=== PATIENT | male | born 1960 | race Caucasian/White ===

== ENCOUNTER 2016-09-30 08:04 | Inpatient (IN) | payer OTHER ==
[2016-09-30] VITALS (7 sets, daily range): BP systolic 113–149; BP diastolic 71–88; PULSE 18–84; RESP 16–19; TEMP 97.6–98.5; O2SAT 96–100
[~2016-09-30] VITALS: Ht 182.9 cm; Wt 77.4 kg
[2016-09-30] MEDS ORDERED: SODIUM CHLOR 0.9% 1000 ML INJ 1,000 ML IV SCH (08:49)
[2016-09-30] MEDS ORDERED: SODIUM CHLORIDE 0.9% FLUSH 10 ML FLUSH IV FLUSH PRN ×2 (09:00→11:15)
[2016-09-30] MEDS ORDERED: MORPHINE SULFATE 4 MG/ML INJ IV PUSH ONE (09:00)
[2016-09-30] MEDS ORDERED: ONDANSETRON HCL 4 MG/2 ML VIAL IVP ONE (09:00)
[2016-09-30 09:12] LABS: AUTOMATED NEUTROPHIL # 9.5 TH/MM3 (1.8-7.7); BASOPHIL # 0.1 TH/MM3 (0-0.2); BASOPHIL % 0.6 % (0.0-2.0); EOSINOPHIL % 0.4 % (0.0-4.0); HEMATOCRIT 42.5 % (39.0-51.0); LYMPH % 13.5 % (9.0-44.0); LYMPHOCYTE # 1.6 TH/MM3 (1.0-4.8); MEAN CELL VOLUME 87.6 FL (80.0-100.0); MEAN CORPUSCULAR HEMOGLOBIN 28.6 PG (27.0-34.0); MEAN CORPUSCULAR HGB CONC 32.6 % (32.0-36.0); MONO % 4.1 % (0.0-8.0); NEUT % 81.4 % (16.0-70.0); PLATELET COUNT 311 TH/MM3 (150-450); RED BLOOD COUNT 4.86 MIL/MM3 (4.50-5.90); RED CELL DISTRIBUTION WIDTH 13.2 % (11.6-17.2); WHITE BLOOD COUNT 11.7 TH/MM3 (4.0-11.0)
--- NOTE | 2016-09-30 09:13 | PD ---
HPI Chief Complaint: Abdominal Pain Time Seen by Provider: 08:46 Travel History International Travel<30 days: No Contact w/Intl Traveler<30days: No Traveled to known affect area: No History of Present Illness HPI 56-year-old male presents with central abdominal pain that is been present since yesterday. He states he had a normal bowel movement yesterday but today it was a little bit more slimy. He denies any nausea or vomiting or other concurrent complaints. He denies prior history of this. He states that he had to leave work early yesterday secondary to the pain. Quality pain is sharp. Severity is progressive. He denies specific migration of the pain. Pain is worse with movement. He denies other specific modifying factors. PFSH Past Medical History Medical History: Denies Significant Hx Hx Anticoagulant Therapy: No Diabetes: No Diminished Hearing: No Tetanus Vaccination: Unknown Past Surgical History Surgical History: No Previous Surgery Social History Alcohol Use: No Tobacco Use: Yes (RARE CIGAR) Substance Use: No Allergies-Medications (Allergen,Severity, Reaction): Coded Allergies: No Known Allergies (Unverified , 09/30/16) Reported Meds & Prescriptions Reported Meds & Active Scripts Active No Active Prescriptions or Reported Medications Review of Systems Except as stated in HPI: all other systems reviewed are Neg Physical Exam Narrative GENERAL: Well-nourished, well-developed patient. Uncomfortable SKIN: Warm and dry. HEAD: Normocephalic and atraumatic. EYES: No injection or drainage. ENT: No nasal drainage noted. NECK: Supple, trachea midline. CARDIOVASCULAR: Regular rate and rhythm RESPIRATORY: No increased effort. No accessory muscle use. GASTROINTESTINAL: Abdomen soft, tender to palpation in periumbilical area with what appears to be umbilical hernia but pulls away hand when attempting to reduce, nondistended. EXTREMITIES: No edema. NEUROLOGICAL: Awake and alert. Motor and sensory grossly within normal limits. Normal speech. Data Data Last Documented VS Vital Signs Date Time Temp Pulse Resp B/P Pulse Ox O2 Delivery O2 Flow Rate FiO2 09/30/16 09:15 64 18 113/74 100 Room Air 09/30/16 08:22 97.6 Orders Complete Blood Count With Diff (09/30/16 08:49) Comprehensive Metabolic Panel (09/30/16 08:49) Lipase (09/30/16 08:49) Urinalysis - C+S If Indicated (09/30/16 08:49) Ct Abd/Pel W Iv Contrast(Rout) (09/30/16 08:49) Iv Access Insert/Monitor (09/30/16 08:49) Ecg Monitoring (09/30/16 08:49) Oximetry (09/30/16 08:49) Morphine Inj (Morphine Inj) (09/30/16 09:00) Ondansetron Inj (Zofran Inj) (09/30/16 09:00) Sodium Chlor 0.9% 1000 Ml Inj (Ns 1000 M (09/30/16 08:49) Sodium Chloride 0.9% Flush (Ns Flush) (09/30/16 09:00) Iohexol 350 Inj (Omnipaque 350 Inj) (09/30/16 10:16) Piperacil-Tazo 3.375 Gm Premix (Zosyn 3. (09/30/16 11:00) Consult General Surgery (09/30/16 ) Admit Order (Ed Use Only) (09/30/16 10:59) Labs Laboratory Tests Test 09/30/16 09:00 White Blood Count 11.7 TH/MM3 Red Blood Count 4.86 MIL/MM3 Hemoglobin 13.9 GM/DL Hematocrit 42.5 % Mean Corpuscular Volume 87.6 FL Mean Corpuscular Hemoglobin 28.6 PG Mean Corpuscular Hemoglobin 32.6 % Concent Red Cell Distribution Width 13.2 % Platelet Count 311 TH/MM3 Mean Platelet Volume 7.3 FL Neutrophils (%) (Auto) 81.4 % Lymphocytes (%) (Auto) 13.5 % Monocytes (%) (Auto) 4.1 % Eosinophils (%) (Auto) 0.4 % Basophils (%) (Auto) 0.6 % Neutrophils # (Auto) 9.5 TH/MM3 Lymphocytes # (Auto) 1.6 TH/MM3 Monocytes # (Auto) 0.5 TH/MM3 Eosinophils # (Auto) 0.0 TH/MM3 Basophils # (Auto) 0.1 TH/MM3 CBC Comment DIFF FINAL Differential Comment Sodium Level 142 MEQ/L Potassium Level 3.8 MEQ/L Chloride Level 105 MEQ/L Carbon Dioxide Level 29.2 MEQ/L Anion Gap 8 MEQ/L Blood Urea Nitrogen 8 MG/DL Creatinine 0.91 MG/DL Estimat Glomerular Filtration 86 ML/MIN Rate Random Glucose 112 MG/DL Calcium Level 9.0 MG/DL Total Bilirubin 1.1 MG/DL Aspartate Amino Transf 10 U/L (AST/SGOT) Alanine Aminotransferase 20 U/L (ALT/SGPT) Alkaline Phosphatase 59 U/L Total Protein 7.4 GM/DL Albumin 3.6 GM/DL Lipase 127 U/L MDM Medical Decision Making Medical Screen Exam Complete: Yes Emergency Medical Condition: Yes Medical Record Reviewed: Yes (past history confirmed) Interpretation(s) CBC & BMP Diagram 09/30/16 09:00 CT scan abdomen pelvis shows inflammation of ileum and sigmoid colon with microperforation without abscess, small midline ventral hernia, fatty liver, renal cyst, degenerative spiny changes Differential Diagnosis Umbilical hernia, gastritis, appendicitis, pancreatitis, stone Narrative Course Will check blood work, urinalysis, CT scan and dose with Zofran and morphine and reevaluate ED workup with microperforation diverticulitis. Will dose with Zosyn and admit to the hospital. Patient updated and agrees to plan Physician Communication Physician Communication dr small states to admit to medicine with antibiotics, will follow dr fuentes agrees to admit Diagnosis Primary Impression: Diverticulitis Qualified Code: K57.80 - Diverticulitis of intestine with perforation without bleeding, unspecified part of intestinal tract Admitting Information Admitting Physician Requests: Admit Scripts No Active Prescriptions or Reported Meds Mami Rodgers MD Sep 30, 2016 09:13
[2016-09-30 09:15] LABS: HEMO FLAGS DIFF FINAL
[2016-09-30 09:53] LABS: BICARBONATE 29.2 MEQ/L (21.0-32.0); BLOOD UREA NITROGEN 8 MG/DL (7-18)
[2016-09-30 09:56] LABS: ALT (GPT) 20 U/L (12-78); AST (GOT) 10 U/L (15-37); GLOMERULAR FILTRATION RATE 86 ML/MIN (>89)
[2016-09-30 09:57] LABS: TOTAL BILIRUBIN ADULT 1.1 MG/DL (0.2-1.0)
[2016-09-30 09:58] LABS: ALKALINE PHOSPHATASE 59 U/L (45-117); ANION GAP 8 MEQ/L (5-15); CHLORIDE 105 MEQ/L (98-107); POTASSIUM 3.8 MEQ/L (3.5-5.1); SODIUM (NA) 142 MEQ/L (136-145)
[2016-09-30] MEDS ORDERED: IOHEXOL 350 MG/ML 10 ML VIAL (for RAD DIAG) IV ONE (10:16)
--- NOTE | 2016-09-30 10:48 | RADHPO ---
EXAM DATE/TIME: 09/30/2016 10:02 [facility] COMPARISON: No previous studies available for comparison. INDICATIONS : Mid abdominal pain for one day. IV CONTRAST: 95 cc Omnipaque 350 (iohexol) IV ORAL CONTRAST: No oral contrast ingested. RADIATION DOSE: 10.34 CTDIvol (mGy) MEDICAL HISTORY : None SURGICAL HISTORY : None. ENCOUNTER: Initial ACUITY: 1 day PAIN SCALE: 2/10 LOCATION: Abdomen TECHNIQUE: Volumetric scanning of the abdomen and pelvis was performed. Using automated exposure control and ad justment of the mA and/or kV according to patient size, radiation dose was kept as low as reasonably achievable to obtain optimal diagnostic quality images. FINDINGS: There is evidence of extensive inflammatory changes surrounding a loop of thickened ileum as well as pericolic inflammatory changes within the region of the mid sigmoid colon. The findings raise the possibility o f either acute diverticulitis with associated enteritis or possibly inflammatory bowel disease involving the d istal ileum with adjacent pericolic inflammatory changes in the region of the sigmoid. There are tiny extra gen nal collections of air in the region of the inflammatory changes within the right lower quadrant suggesti ng microperforation. No abscess formation is noted. The appendix is normal. The liver is mildly enlarged and demonstrates fatty infiltration. No focal hepatic mass is noted. N o biliary ductal dilatation is noted. The gallbladder is distended but demonstrates no wall thickening or pericholecy stic fluid. The spleen is normal. The pancreas is normal. The adrenal glands are normal bilaterally. The kidneys e nhance briskly and demonstrate no solid mass or hydronephrosis. There is evidence of multiple cysts within the left kidney. The largest cyst measures 13 mm and is located within the upper pole. The abdominal aorta i s calcified but is not aneurysmally dilated. The inferior vena cava is normal. There is no paraaortic, retroper itoneal or mesenteric lymphadenopathy. Ventral abdominal wall hernia is noted in the region of the umbilicus an d contains only fat. No bowel obstruction is noted. The prostate gland is mildly prominent and contains some c entral calcifications. The urinary bladder is unremarkable. Degenerative changes are noted throughout the lumbar and lower thoracic spine. The visualized lung bases are clear. CONCLUSION: 1. Inflammatory changes surrounding a loop of thickened ileum as well as the mid sigmoid colon rita mike the possibility of acute diverticulitis with associated enteritis or possibly inflammatory bowel di sease with adjacent inflammatory changes in the region of the mid sigmoid colon. Clinical correlatio n is recommended. Tiny extra luminal collections of air are noted in this location suggesting microp erforation but no abscess collection is noted. 2. No CT evidence of acute appendicitis 3. Small midline ventral abdominal wall hernia containing only fat. 4. Mildly enlarged fatty liver. 5. Degenerative changes throughout the lumbar and lower thoracic spine. 6. Multiple left renal cysts. Jesus Jim MD on September 30, 2016 at 10:18 Board Certified Radiologist. This report was verified electronically.
[2016-09-30 10:49] LABS: BLOOD, URINE NEG (NEG); GLUCOSE,URINE NEG (NEG); KETONE, URINE NEG (NEG); NITRITE,URINE NEG (NEG); PH, URINE 6.5 (5.0-8.5)
[2016-09-30] MEDS ORDERED: PIPERACIL-TAZO 3.375 GM PREMIX 50 ML IV ONE (11:00)
[2016-09-30] MEDS ORDERED: MAGNESIUM HYDROXIDE SUSP 30 ML CUP PO PRN (11:15)
[2016-09-30] MEDS ORDERED: NALOXONE HCL 0.4 MG/ML AMP IV PRN (11:15)
[2016-09-30] MEDS ORDERED: BISACODYL 10 MG SUPP RECTAL PRN (11:15)
[2016-09-30] MEDS ORDERED: LACTULOSE SYRUP 20 GM/30 ML CUP PO PRN (11:15)
[2016-09-30] MEDS ORDERED: SENNOSIDES 8.6 MG TAB PO PRN (11:15)
[2016-09-30] MEDS ORDERED: ONDANSETRON HCL 4 MG/2 ML VIAL IV PUSH ONE (11:15)
[2016-09-30] MEDS ORDERED: ONDANSETRON HCL 4 MG/2 ML VIAL IVP PRN (11:15)
[2016-09-30 11:21] LABS: METHOD OF COLLECTION CLEAN CATCH
[2016-09-30 11:22] LABS: COMMENT (UR) CULT NOT INDICATED; CULTURE IF INDICATED CULT NOT INDICATED; RBC, URINE 0-3 /hpf (0-3); SQUAMOUS EPITHELIAL CELL URINE 0-5 /hpf (0-5); URINE COLOR YELLOW (YELLW/STRAW)
[2016-09-30] MEDS: SODIUM CHLOR 0.9% 1000 ML INJ 1,000 ML IV SCH ×2 (11:49→22:11)
[2016-09-30] MEDS ORDERED: HEPARIN SODIUM - SQ 10,000 UNITS/ML VIAL SQ SCH (12:00)
--- NOTE | 2016-09-30 15:27 | HHI.HP ---
[facility] Physician Babs Ortiz MD Admission Diagnosis diverticultiis Diagnoses: Travel History International Travel<30 Days: No Contact w/Intl Traveler <30 Da: No Traveled to Known Affected Are: No History of Present Illness 56-year-old male with no significant past medical history, who presents with one -day history of constant, sharp nonradiating central abdominal pain, accompanied by generalized fatigue. Patient does report slimy bowel movements which have become more so over the past 7 months. Denies any nausea or vomiting. Denies any chest pain or shortness of breath. Review of Systems Performed and negative except for history of present illness and past medical history. Past Family Social History Past Medical History Patient denies any significant past medical history Past Surgical History No past surgical history Reported Medications Patient denies any medications. Allergies: Coded Allergies: No Known Allergies (Unverified , 09/30/16) Family History Mother is 77 Father from heart attack in his 50s. Social History Patient reports rare cigar use Denies alcohol use Denies any illicit drug use. Physical Exam Vital Signs Vital Signs Date Time Temp Pulse Resp B/P Pulse Ox O2 Delivery O2 Flow Rate FiO2 09/30/16 13:37 67 18 139/86 97 Room Air 09/30/16 11:29 84 17 116/71 97 Room Air 09/30/16 09:15 64 18 113/74 100 Room Air 09/30/16 08:55 99 Room Air 09/30/16 08:22 97.6 68 16 141/88 99 Physical Exam GENERAL: This is a well-nourished, well-developed patient, appears in pain. Alert and oriented 3. SKIN: No rashes, ecchymoses or lesions. Cool and dry. HEAD: Atraumatic. Normocephalic. No temporal or scalp tenderness. EYES: Pupils equal round and reactive. Extraocular motions intact. No scleral icterus. No injection or drainage. ENT: Nose without bleeding, purulent drainage or septal hematoma. Throat without erythema, tonsillar hypertrophy or exudate. Uvula midline. Airway patent. NECK: Trachea midline. No JVD or lymphadenopathy. Supple, nontender, no meningeal signs. CARDIOVASCULAR: Regular rate and rhythm without murmurs, gallops, or rubs. RESPIRATORY: Clear to auscultation. Breath sounds equal bilaterally. No wheezes , rales, or rhonchi. GASTROINTESTINAL: Abdomen soft, tender to palpation in the epigastrium. No rebound or guarding. MUSCULOSKELETAL: Extremities without clubbing, cyanosis, or edema. No joint tenderness, effusion, or edema noted. No calf tenderness. Negative Homans sign bilaterally. NEUROLOGICAL: Awake and alert. Cranial nerves II through XII intact. Motor and sensory grossly within normal limits. Five out of 5 muscle strength in all muscle groups. Normal speech. Laboratory Laboratory Tests Test 09/30/16 09/30/16 09:00 10:35 White Blood Count 11.7 Red Blood Count 4.86 Hemoglobin 13.9 Hematocrit 42.5 Mean Corpuscular Volume 87.6 Mean Corpuscular Hemoglobin 28.6 Mean Corpuscular Hemoglobin 32.6 Concent Red Cell Distribution Width 13.2 Platelet Count 311 Mean Platelet Volume 7.3 Neutrophils (%) (Auto) 81.4 Lymphocytes (%) (Auto) 13.5 Monocytes (%) (Auto) 4.1 Eosinophils (%) (Auto) 0.4 Basophils (%) (Auto) 0.6 Neutrophils # (Auto) 9.5 Lymphocytes # (Auto) 1.6 Monocytes # (Auto) 0.5 Eosinophils # (Auto) 0.0 Basophils # (Auto) 0.1 CBC Comment DIFF FINAL Differential Comment Sodium Level 142 Potassium Level 3.8 Chloride Level 105 Carbon Dioxide Level 29.2 Anion Gap 8 Blood Urea Nitrogen 8 Creatinine 0.91 Estimat Glomerular Filtration 86 Rate Random Glucose 112 Calcium Level 9.0 Total Bilirubin 1.1 Aspartate Amino Transf 10 (AST/SGOT) Alanine Aminotransferase 20 (ALT/SGPT) Alkaline Phosphatase 59 Total Protein 7.4 Albumin 3.6 Lipase 127 Urine Collection Type CLEAN CATCH Urine Color YELLOW Urine Turbidity CLEAR Urine pH 6.5 Urine Specific [place] 1.015 Urine Protein NEG Urine Glucose (UA) NEG Urine Ketones NEG Urine Occult Blood NEG Urine Nitrite NEG Urine Bilirubin NEG Urine Leukocyte Esterase NEG Urine RBC 0-3 Urine Squamous Epithelial 0-5 Cells Microscopic Urinalysis Comment CULT NOT INDICATED Urine Collection Time 10:35 Result Diagram: 09/30/16 0900 6/13/17 0900 Imaging Last Impressions Abdomen/Pelvis CT 09/30/16 0849 Signed Impressions: Service Date/Time: Friday, September 30, 2016 10:02 - CONCLUSION: 1. Inflammatory changes surrounding a loop of thickened ileum as well as the mid sigmoid colon raising the possibility of acute diverticulitis with associated enteritis or possibly inflammatory bowel disease with adjacent inflammatory changes in the region of the mid sigmoid colon. Clinical correlation is recommended. Tiny extra luminal collections of air are noted in this location suggesting microperforation but no abscess collection is noted. 2. No CT evidence of acute appendicitis 3. Small midline ventral abdominal wall hernia containing only fat. 4. Mildly enlarged fatty liver. 5. Degenerative changes throughout the lumbar and lower thoracic spine. 6. Multiple left renal cysts. Jesus Jim MD Assessment and Plan Assessment and Plan //Diverticulitis.acute -With suspected perforation on CT. -Nothing by mouth. IV fluids. Zosyn. Surgery consulted. //Tobacco use. Smokes cigars occasionally. Cessation counseling provided. Cessation strongly advised. //Prophylaxis. SCDs. Heparin. Code Status Full code Discussed Condition With Patient, nurse, ED physician. Physician Certification 2 Midnight Certification Type: Admission for Inpatient Services Order for Inpatient Services The services are ordered in accordance with Medicare regulations or non- Medicare payer requirements, as applicable. In the case of services not specified as inpatient-only, they are appropriately provided as inpatient services in accordance with the 2-midnight benchmark. Estimated LOS (days): 2 days is the estimated time the patient will need to remain in the hospital, assuming treatment plan goals are met and no additional complications. Post-Hospital Plan: Home Indra Zapien MD Sep 30, 2016 15:27
--- NOTE | 2016-09-30 16:12 | PD.CONS ---
cc: Duncan Li MD HPI Service General Surgery Consult Requested By Reason for Consult Acute diverticulitis Primary Care Physician Babs Ortiz MD History of Present Illness This is a 56 year old male with no medical history who reports a dull abdominal pain for about 3 weeks. He has had little appetite and lost about 5 pounds. The abdominal pain increased in intensity yesterday and he came to the ED for evaluation. He has a mildly elevated WBC. CT abdominal/pelvis obtained and shows inflammatory changes surrounding a loop of thickened ileum and mid sigmoid colon; there was a tiny amount of extra-luminal air visualized. A General Surgery consultation has been requested for evaluation of microperforation diverticulitis. Review of Systems Constitutional: COMPLAINS OF: Fever, Weight loss, Chills Endocrine: DENIES: Polydipsia, Polyuria, Polyphagia Eyes: DENIES: Blurred vision, Diplopia Ears, nose, mouth, throat: DENIES: Tinnitus Respiratory: DENIES: Apneas Cardiovascular: DENIES: Chest pain Gastrointestinal: COMPLAINS OF: Abdominal pain, DENIES: Nausea, Vomiting Genitourinary: DENIES: Urgency, Hematuria Musculoskeletal: DENIES: Joint pain Integumentary: DENIES: Abnormal pigmentation Hematologic/lymphatic: DENIES: Bruising Immunologic/allergic: DENIES: Eczema Neurologic: DENIES: Headache Psychiatric: DENIES: Confusion, Mood changes Past Family Social History Past Medical History None Past Surgical History None Reported Medications None Allergies: Coded Allergies: No Known Allergies (Unverified , 09/30/16) Active Ordered Medications Current Medications Medications (Trade) Dose Ordered Sig/[place] Route Start Time Stop Time Status Last Admin (NS 1000 ml Inj) 1,000 ml @ 100 mls/hr Q10H IV 09/30/16 12:00 09/30/16 11:49 (NS Flush) 2 ml UNSCH PRN IV FLUSH 09/30/16 11:15 (NS Flush) 2 ml BID IV FLUSH 09/30/16 21:00 (Zofran Inj) 4 mg Q6H PRN IVP 09/30/16 11:15 (Narcan Inj) 0.4 mg UNSCH PRN IV 09/30/16 11:15 (Milk Of Magnesia Liq) 30 ml Q12H PRN PO 09/30/16 11:15 (Senokot) 17.2 mg Q12H PRN PO 09/30/16 11:15 (Dulcolax Supp) 10 mg DAILY PRN RECTAL 09/30/16 11:15 Lactulose 30 ml 30 ml DAILY PRN PO 09/30/16 11:15 (Zosyn 3.375 Gm Premix) 50 ml @ 100 mls/hr Q6H IV 09/30/16 17:00 (Heparin Inj) 5,000 units Q12HR SQ 10/01/16 21:00 Family History Noncontributory Social History +Tob---occasional use of cigars Denies ETOH use Denies illicit drugs Physical Exam Vital Signs Vital Signs Date Time Temp Pulse Resp B/P Pulse Ox O2 Delivery O2 Flow Rate FiO2 09/30/16 13:37 67 18 139/86 97 Room Air 09/30/16 11:29 84 17 116/71 97 Room Air 09/30/16 09:15 64 18 113/74 100 Room Air 09/30/16 08:55 99 Room Air 09/30/16 08:22 97.6 68 16 141/88 99 Physical Exam GENERAL: 56 year old male resting in bed in no acute distress SKIN: Warm and dry. HEAD: Atraumatic. Normocephalic. EYES: Pupils equal and round. No scleral icterus. No injection or drainage. ENT: No nasal bleeding or discharge. Mucous membranes pink and moist. NECK: Trachea midline. CARDIOVASCULAR: Regular rate and rhythm. RESPIRATORY: No accessory muscle use. Clear to auscultation. Breath sounds equal bilaterally. GASTROINTESTINAL: Abdomen soft, mildly tenderness with palpation, mildly distended. No visible scars on abdomen. MUSCULOSKELETAL: Extremities without clubbing, cyanosis, or edema. No obvious deformities. NEUROLOGICAL: Awake and alert. No obvious cranial nerve deficits. Motor grossly within normal limits. Five out of 5 muscle strength in the arms and legs. Normal speech. PSYCHIATRIC: Appropriate mood and affect; insight and judgment normal. Laboratory Laboratory Tests Test 09/30/16 09/30/16 09:00 10:35 White Blood Count 11.7 Red Blood Count 4.86 Hemoglobin 13.9 Hematocrit 42.5 Mean Corpuscular Volume 87.6 Mean Corpuscular Hemoglobin 28.6 Mean Corpuscular Hemoglobin 32.6 Concent Red Cell Distribution Width 13.2 Platelet Count 311 Mean Platelet Volume 7.3 Neutrophils (%) (Auto) 81.4 Lymphocytes (%) (Auto) 13.5 Monocytes (%) (Auto) 4.1 Eosinophils (%) (Auto) 0.4 Basophils (%) (Auto) 0.6 Neutrophils # (Auto) 9.5 Lymphocytes # (Auto) 1.6 Monocytes # (Auto) 0.5 Eosinophils # (Auto) 0.0 Basophils # (Auto) 0.1 CBC Comment DIFF FINAL Differential Comment Sodium Level 142 Potassium Level 3.8 Chloride Level 105 Carbon Dioxide Level 29.2 Anion Gap 8 Blood Urea Nitrogen 8 Creatinine 0.91 Estimat Glomerular Filtration 86 Rate Random Glucose 112 Calcium Level 9.0 Total Bilirubin 1.1 Aspartate Amino Transf 10 (AST/SGOT) Alanine Aminotransferase 20 (ALT/SGPT) Alkaline Phosphatase 59 Total Protein 7.4 Albumin 3.6 Lipase 127 Urine Collection Type CLEAN CATCH Urine Color YELLOW Urine Turbidity CLEAR Urine pH 6.5 Urine Specific [place] 1.015 Urine Protein NEG Urine Glucose (UA) NEG Urine Ketones NEG Urine Occult Blood NEG Urine Nitrite NEG Urine Bilirubin NEG Urine Leukocyte Esterase NEG Urine RBC 0-3 Urine Squamous Epithelial 0-5 Cells Microscopic Urinalysis Comment CULT NOT INDICATED Urine Collection Time 10:35 Result Diagram: 09/30/16 0900 09/30/16 0900 Assessment and Plan Assessment and Plan 56 year old male with abdominal pain; microperforation diverticulitis -IVF -NPO; okay for a few ice chips -IV antibiotics -Labs in AM -Will plan to get patient over this acute episode of diverticulitis with antibiotics -No operative plans at this time -Thank you for this consult -We will continue to follow I certify and attest that I personally examined this patient and reviewed his record. I discussed Complicated diverticulitis with him in person. Recommend IV ABX followed by PO ABX and FU with me and GI. DUNCAN LI MD FACS Discussed Condition With Dr. Li Mr. Lady PonceLatasha Sep 30, 2016 16:12 Duncan Li MD Oct 08, 2016 12:34
[2016-09-30] MEDS: PIPERACIL-TAZO 3.375 GM PREMIX 50 ML IV SCH ×2 (19:04→22:11)
[2016-09-30] MEDS ORDERED: DOCUSATE SODIUM 50 MG/SENNA 8.6 MG TAB PO SCH (21:00)
[2016-09-30] MEDS ORDERED: SODIUM CHLORIDE 0.9% FLUSH 10 ML FLUSH IV FLUSH SCH (21:00)
[2016-10-01] VITALS: BP 128/84; PULSE 74; RESP 18; TEMP 97.1; O2SAT 96
[2016-10-01] MEDS: PIPERACIL-TAZO 3.375 GM PREMIX 50 ML IV SCH (04:20)
[2016-10-01 06:48] LABS: BASOPHIL % 0.2 % (0.0-2.0); EOSINOPHIL # 0.1 TH/MM3 (0-0.4); EOSINOPHIL % 0.6 % (0.0-4.0); HEMATOCRIT 37.4 % (39.0-51.0); HEMO FLAGS DIFF FINAL; LYMPH % 9.7 % (9.0-44.0); MEAN CELL VOLUME 87.5 FL (80.0-100.0); MEAN CORPUSCULAR HGB CONC 33.1 % (32.0-36.0); NEUT % 85.5 % (16.0-70.0); PLATELET COUNT 257 TH/MM3 (150-450); RED BLOOD COUNT 4.28 MIL/MM3 (4.50-5.90); RED CELL DISTRIBUTION WIDTH 13.2 % (11.6-17.2); WHITE BLOOD COUNT 10.5 TH/MM3 (4.0-11.0)
[2016-10-01 06:58] LABS: CHLORIDE 107 MEQ/L (98-107); POTASSIUM 3.5 MEQ/L (3.5-5.1); SODIUM (NA) 142 MEQ/L (136-145)
[2016-10-01 07:10] LABS: ALKALINE PHOSPHATASE 51 U/L (45-117); ALT (GPT) 16 U/L (12-78); ANION GAP 10 MEQ/L (5-15); AST (GOT) 8 U/L (15-37); BICARBONATE 24.7 MEQ/L (21.0-32.0); BLOOD UREA NITROGEN 8 MG/DL (7-18); GLOMERULAR FILTRATION RATE 112 ML/MIN (>89); TOTAL BILIRUBIN ADULT 0.9 MG/DL (0.2-1.0)
--- NOTE | 2016-10-01 07:45 | HHI.PR ---
Subjective Subjective Notes feels much better, wants to eat and go home. no fevers, no N/V Objective Vitals/I&O Vital Signs Date Time Temp Pulse Resp B/P Pulse Ox O2 Delivery O2 Flow Rate FiO2 10/01/16 00:00 97.1 74 18 128/84 96 09/30/16 13:37 Room Air Labs Laboratory Tests Test 09/30/16 09/30/16 10/01/16 09:00 10:35 05:35 White Blood Count 11.7 10.5 Red Blood Count 4.86 4.28 Hemoglobin 13.9 12.4 Hematocrit 42.5 37.4 Mean Corpuscular Volume 87.6 87.5 Mean Corpuscular Hemoglobin 28.6 29.0 Mean Corpuscular Hemoglobin 32.6 33.1 Concent Red Cell Distribution Width 13.2 13.2 Platelet Count 311 257 Mean Platelet Volume 7.3 7.9 Neutrophils (%) (Auto) 81.4 85.5 Lymphocytes (%) (Auto) 13.5 9.7 Monocytes (%) (Auto) 4.1 4.0 Eosinophils (%) (Auto) 0.4 0.6 Basophils (%) (Auto) 0.6 0.2 Neutrophils # (Auto) 9.5 9.0 Lymphocytes # (Auto) 1.6 1.0 Monocytes # (Auto) 0.5 0.4 Eosinophils # (Auto) 0.0 0.1 Basophils # (Auto) 0.1 0.0 CBC Comment DIFF FINAL DIFF FINAL Differential Comment Sodium Level 142 142 Potassium Level 3.8 3.5 Chloride Level 105 107 Carbon Dioxide Level 29.2 24.7 Anion Gap 8 10 Blood Urea Nitrogen 8 8 Creatinine 0.91 0.72 Estimat Glomerular Filtration 86 112 Rate Random Glucose 112 79 Calcium Level 9.0 8.3 Total Bilirubin 1.1 0.9 Aspartate Amino Transf 10 8 (AST/SGOT) Alanine Aminotransferase 20 16 (ALT/SGPT) Alkaline Phosphatase 59 51 Total Protein 7.4 6.6 Albumin 3.6 2.9 Lipase 127 Urine Collection Type CLEAN CATCH Urine Color YELLOW Urine Turbidity CLEAR Urine pH 6.5 Urine Specific [place] 1.015 Urine Protein NEG Urine Glucose (UA) NEG Urine Ketones NEG Urine Occult Blood NEG Urine Nitrite NEG Urine Bilirubin NEG Urine Leukocyte Esterase NEG Urine RBC 0-3 Urine Squamous Epithelial 0-5 Cells Microscopic Urinalysis Comment CULT NOT INDICATED Urine Collection Time 10:35 Cardiovascular: Regular Lungs: Clear Abdomen: Non-distended, Non-tender, BS normal A/P Assessment and Plan acute diverticulitis with microperforation - improved resume diet, advised patient to stay on high fiber diet at home change IV ABX to po - recommend 1 week levaquin/cipro plus flagyl ok to dc home FU in office 2-3 weeks. will sign off, please call with any concerns Segundo Sinclair MD Oct 01, 2016 07:45
[2016-10-01 08:18] VITALS: BP 148/70; PULSE 78; RESP 19; TEMP 98.1; O2SAT 94
[2016-10-01] MEDS ORDERED: METR500T10 PO (10:56)
[2016-10-01] MEDS ORDERED: CIPR-9 PO (10:56)
--- NOTE | 2016-10-01 11:03 | HHI.PR ---
Subjective Remarks Patient seen this morning. Says that abdominal pain is much improved. Denies any chest pain or shortness of breath. Denies any nausea or vomiting. Like to go home. Objective Vital Signs Date Time Temp Pulse Resp B/P Pulse Ox O2 Delivery O2 Flow Rate FiO2 10/01/16 08:18 98.1 78 19 148/70 94 10/01/16 00:00 97.1 74 18 128/84 96 09/30/16 20:00 98.5 66 18 120/71 96 09/30/16 17:25 97.9 18 19 149/88 96 09/30/16 13:37 67 18 139/86 97 Room Air 09/30/16 11:29 84 17 116/71 97 Room Air I/O 09/30/16 09/30/16 09/30/16 10/01/16 10/01/16 10/01/16 07:00 15:00 23:00 07:00 15:00 23:00 Intake Total 305 ml 300 ml Output Total 200 ml Balance 105 ml 300 ml Intake IV Total 305 ml 300 ml Output Urine Total 200 ml # Voids 1 Result Diagram: 10/01/16 0535 10/01/16 0535 Objective Remarks GENERAL: Patient sitting up in bed. Appears comfortable. Alert and oriented 3. SKIN: Warm and dry. HEAD: Normocephalic. EYES: No scleral icterus. No injection or drainage. NECK: Supple, trachea midline. No JVD CARDIOVASCULAR: Regular rate and rhythm without murmurs, gallops, or rubs. RESPIRATORY: Breath sounds equal bilaterally. No accessory muscle use. GASTROINTESTINAL: Abdomen soft, non-tender, nondistended. No rebound or guarding. Positive bowel sounds. MUSCULOSKELETAL: No cyanosis, or edema. BACK: Nontender without obvious deformity. No CVA tenderness. A/P Assessment and Plan //Diverticulitis.acute -With suspected perforation on CT. -Nothing by mouth. IV fluids. Zosyn. Surgery consulted. //Tobacco use. Smokes cigars occasionally. Cessation counseling provided. Cessation strongly advised. //Prophylaxis. SCDs. Heparin. Discharge Planning Discharge home in good condition. High-fiber, low residue diet. Activity ad shruti. Medications, seven-day course of Cipro and Flagyl. Please see medication reconciliation. Follow-up with general surgery in 2 weeks. Indra Zapien MD Oct 01, 2016 11:02
[2016-10-01] MEDS ORDERED: HEPARIN SODIUM - SQ 10,000 UNITS/ML VIAL SQ SCH (21:00)
== END 2016-10-01 12:06 | disposition home or self-care (01) | DRG 392 ==
LOC: PHED 08:04 → PHEDA 11:00 → PH3A 14:29
PROVIDERS: ADMIT Internal Medicine; ATTEND Internal Medicine
DX: K57.32 Diverticulitis of large intestine without perforation or abscess without bleeding (principal); F17.290 Nicotine dependence, other tobacco product, uncomplicated
CPT/HCPCS: 74177; 80053; 81001; 83690; 85025; 96361; 96374; 96375; J1644; J2270; J2405; J2543; J7030; Q9967

== ENCOUNTER → 2016-10-27 | Day surgery (SDC) | payer OTHER ==
[~2016-10-27] MED LIST: CIPR-9 PO; LACTATED RINGER'S 1000 ML INJ 1,000 ML ONE; METR500T10 PO; PROPOFOL 500 MG/50 ML BTL IV ONE
--- NOTE | 2016-10-27 10:50 | GIPROC ---
[facility] [address] [facility], [address] COLONOSCOPY PROCEDURE REPORT EXAM DATE: 10/27/2016 PATIENT NAME: Grant Narayanan MR #: [id number] BIRTHDATE: 1960 ENDOSCOPIST: Joce Kim MD ORDER #: [id number] FIELD PIPELINES SUPERVISOR: Ary Pierre SIGNAL OPERATOR TECHNICAL STATUS: outpatient INDICATIONS: The patient is a 56 yr old male here for a colonoscopy due to patient's immediate family history of colon cancer PROCEDURE PERFORMED: Colonoscopy with biopsy Colonoscopy with polypectomy MEDICATIONS: None and Per Anesthesia. PREP QUALITY: The [place] Bowel Prep Score was Right colon 2, Mid colon 2, and Left colon 3. Total = 7. ESTIMATED BLOOD LOSS: None CONSENT: The patient understands the risks and benefits of the procedure and understands that these risks include, but are not limited to: sedation, allergic reaction, infection, perforation and/or bleeding. Alternative means of evaluation and treatment include, among others: physical exam, x-rays, and/or surgical intervention. The patient elects to proceed with this endoscopic procedure. medical equipment was checked for proper function. Hand hygiene and appropriate measures for infection prevention was taken. After the risks, benefits and alternatives of the procedure were thoroughly explained, Informed consent was verified, confirmed and timeout was successfully executed by the treatment team. A digital exam revealed external hemorrhoids The EC-[id number] ([id number]) endoscope was introduced through the anus and advanced to the cecum, which was identified by both the appendix and ileocecal valve. The instrument was then slowly withdrawn as the colon was fully examined. COLON FINDINGS: There was moderate diverticulosis noted in the sigmoid colon with associated inflammatory changes. No bleeding was noted from the diverticulosis. Two smooth flat polyps ranging between 3-5mm in size were found in the sigmoid colon. A polypectomy was performed with cold forceps. The resection was complete and the polyp tissue was completely retrieved. A biopsy was performed using cold forceps. Retroflexed views revealed internal hemorrhoids and Retroflexed views revealed small internal hemorrhoids The scope was then completely withdrawn from the patient and the procedure terminated. PROCEDURE WITHDRAWAL TIME:7minutes ADVERSE EVENTS: There were no complications. IMPRESSIONS: 1. There was moderate diverticulosis noted in the sigmoid colon 2. Two flat polyps ranging between 3-5mm in size were found in the sigmoid colon; polypectomy was performed with cold forceps; biopsy was performed using cold forceps 3. Retroflexed views revealed internal hemorrhoids 4. Retroflexed views revealed small internal hemorrhoids 5. Revealed external hemorrhoids RECOMMENDATIONS: 1. Await biopsy results. Biopsy results will not be ready for 7-10 days. If you don't hear from us in two weeks, call our office for results. 2. Benefiber 2 tsp daily 3. Continue surveillance 4. Yearly hemoccult 5. High fiber diet 6. No seeds, nuts and popcorn in diet RECALL: Return 3 years Colonoscopy, pending biopsy results Joce Kim MD eSigned: Joce Kim MD 10/27/2016 10:49 AM cc: [facility] [place] PATIENT NAME: Grant Narayanan MR#: [id number]
== END | disposition home or self-care (01) ==
LOC: ESDC 08:30
PROVIDERS: ATTEND Internal Medicine Gastroenterology
DX: Z12.11 Encounter for screening for malignant neoplasm of colon (principal); Z80.0 Family history of malignant neoplasm of digestive organs; D12.5 Benign neoplasm of sigmoid colon; K57.90 Diverticulosis of intestine, part unspecified, without perforation or abscess without bleeding; K64.8 Other hemorrhoids; K64.4 Residual hemorrhoidal skin tags
CPT/HCPCS: 00810; 45380; 88305; J7120